=== PATIENT | male | born 1975 | race African-American/Black ===

== ENCOUNTER → 2017-01-30 | Outpatient (CLI) | payer BC ==
--- NOTE | 2017-01-30 15:31 | PCVCIMAG ---
APPROVED REPORT Study performed: 01/30/2017 14:16:15 EXAM: Comprehensive 2D, Doppler, and color-flow Echocardiogram Patient Location: Echo lab Status: routine BSA: 2.37 HR: 60 bpmBP: 100/70 mmHg Rhythm: NSR Other Information Study Quality: Good Indications Chest Pain. Dyspnea 2D Dimensions IVSd: 12.36 (7-11mm)LVOT Diam: 21.95 (18-24mm) LVDd: 48.37 mm PWd: 9.87 (7-11mm)Ascending Ao: 29.90 (22-36mm) LVDs: 38.43 (25-40mm) Left Atrium: 27.94 (27-40mm) Aortic Root: 32.32 mm LV Single Plane 4CH: 50.65 % LV Single Plane 2CH: 58.26 %Aragon's LVEF: 54.46 % Biplane EF: 55.2 % Volumes Left Atrial Volume (Systole) Single Plane 4CH: 16.38 mLSingle Plane 2CH: 29.46 mL LA ESV Index: 10.00 mL/m2 Aortic Valve AoV Peak Chip.: 0.96 m/s AO Peak Gr.: 3.66 mmHg Mitral Valve E/A Ratio: 1.1 MV Decel. Time: 248.11 ms MV E Max Chip.: 0.51 m/s MV A Chip.: 0.48 m/s Pulmonary Valve PV Peak Gr.: 1.90 mmHg Tricuspid Valve TR Peak Chip.: 2.45 m/s TR Peak Gr.: 24.08 mmHg Left Ventricle The left ventricle is normal size. There is normal LV segmental wall motion. There is normal left ventricular wall thickness. Left ventricular systolic function is normal. The left ventricular ejection fraction is within the normal range. LVEF is 50-55%. Right Ventricle The right ventricle is normal size. The right ventricular systolic function is normal. Atria The left atrium size is normal. The right atrium size is normal. Aortic Valve The aortic valve is normal in structure. No aortic regurgitation is present. There is no aortic valvular stenosis. Mitral Valve The mitral valve is normal in structure. There is no mitral valve regurgitation noted. No evidence of mitral valve stenosis. Tricuspid Valve The tricuspid valve is normal in structure. Trace tricuspid regurgitation. Pulmonary artery pressure is 31mmhg. Pulmonic Valve The pulmonary valve is normal in structure. Mild pulmonic regurgitation. Great Vessels The aortic root is normal in size. IVC is normal in size and collapses with >50% inspiration Pericardium There is no pericardial effusion. <Conclusion> The left ventricle is normal size. Left ventricular systolic function is normal. The right ventricle is normal size. The left atrium size is normal. The aortic valve is normal in structure. Trace tricuspid regurgitation. Pulmonary artery pressure is 31mmhg. There is no pericardial effusion.
--- NOTE | 2017-01-30 17:15 | PCVCIMAG ---
APPROVED REPORT Patient Location: Echo lab Room #: Stress Nurse: Estrella Tavarez RN Treadmill Stress Test: Indication: Chest Pain, dyspnea. The Patient exercised according to the Lenny protocol for 10:34 mins, achieving a work level of 13.7 METs. The resting heart rate of 64 bpm kingsley to a maximal heart rate of 171 bpm. This value represents 95% of the maximal age predicted heart rate. The resting blood pressure of 110/70mmhg, kingsley to a maximum blood pressure of 140/70mmhg. The exercise test was stopped due to fatigue, dyspnea. Target heart rate achieved. Conclusion Conclusion: 1. Clinical response, nonischemic. 2. Stress ECG response, nonischemic. 3. Exercise capacity, average.
== END | disposition home or self-care (01) ==
LOC: PCVCIMAG 14:00
PROVIDERS: ATTEND Internal Medicine Cardiovascular Disease
DX: I37.1 Nonrheumatic pulmonary valve insufficiency (principal); R07.9 Chest pain, unspecified; R06.09 Other forms of dyspnea
CPT/HCPCS: 93005; 93017; 93306; G0463